=== PATIENT | male | born 1940 | race Caucasian/White ===

== ENCOUNTER 2021-07-16 15:15 | Emergency (ER) | payer OTHER ==
[2021-07-16 15:31] VITALS: BP 105/58; PULSE 83; TEMP 97.9; BMI 32.8
== END 2021-07-16 17:06 | disposition home or self-care (01) ==
LOC: JERFT 15:15
DX: R68.89 Other general symptoms and signs (principal); W01.0XXA Fall on same level from slipping, tripping and stumbling without subsequent striking against object, initial encounter
CPT/HCPCS: 70450-TC; 99284-25

== ENCOUNTER 2021-11-01 15:00 | Observation (INO) | payer OTHER ==
[2021-11-01] MEDS ORDERED: SODIUM CHLORIDE 0.9% 1000 ML INFUS.BAG IV ONE (15:20)
[2021-11-01 16:47] LABS: HEMATOCRIT 43.1 % (35.4-49); HEMOGLOBIN 15.1 G/dL (11.7-16.9); MCH 28.6 pg (25.7-33.7); MCHC 35.1 g/dl (32.0-35.9); MEAN CELL VOLUME 81.7 fl (80-96); RBC 5.28 10^6/uL (4.00-5.60); WHITE BLOOD COUNT 10.9 10^3/uL (4.0-10.8)
[2021-11-01 16:48] LABS: MEAN PLT VOLUME 8.7 fl (7.5-11.1); PLATELET COUNT 202.4 10^3/uL (134-434); RDW 15.4 % (11.9-15.9)
[2021-11-01 17:02] LABS: BILIRUBIN,TOTAL 0.6 mg/dl (0.2-1); CALCIUM 9.5 mg/dl (8.5-10); CREATININE 0.9 mg/dl (0.55-1.3); TOT PROT 6.7 g/dl (6.4-8.2)
[2021-11-01 18:24] LABS: EPITHELIAL CELLS FEW /hpf
[2021-11-01] MEDS ORDERED: ASPIRIN 81 MG CHEWABLE TABLETS PO ONE (18:24)
[2021-11-01 18:25] LABS: URINE MUCUS 1+
[2021-11-01] MEDS ORDERED: ASPIRIN 81 MG CHEWABLE TABLETS ONE (18:45)
[2021-11-01 19:04] LABS: PLATELET ESTIMATE ADEQUATE
[2021-11-02 08:26] VITALS: BMI 25.7
[2021-11-02] MEDS: ENTACAPONE 200 MG TABLET PO SCH ×2 (10:45→21:32)
[2021-11-02] MEDS: INSULIN SLIDING SCALE (NOVOLOG) 1 VIAL SQ SCH ×3 (11:09→21:31)
[2021-11-02] MEDS ORDERED: POLYETHYLENE GLYCOL (HEALTHYLAX) 3350 17 GM PACKET PO ONE (12:38)
[2021-11-02] MEDS ORDERED: SENNOSIDES 8.6MG TABLET (FP) PO PRN (12:38)
[2021-11-02 20:20] LABS: EPITHELIAL CELLS RARE /hpf
[2021-11-02] MEDS: POLYETHYLENE GLYCOL (HEALTHYLAX) 3350 17 GM PACKET PO SCH (21:32)
[2021-11-02] MEDS: GABAPENTIN 100 MG CAPSULE PO SCH (22:14)
[2021-11-03] MEDS: INSULIN SLIDING SCALE (NOVOLOG) 1 VIAL SQ SCH ×4 (08:13→22:21)
[2021-11-03 08:59] LABS: INR 1.03 (0.83-1.09); PROTHROMBIN TIME (PATIENT) 11.9 SEC (9.7-13.0)
[2021-11-03 09:06] LABS: ALBUMIN 3.8 g/dl (3.4-5.0); BILIRUBIN,TOTAL 1.1 mg/dl (0.2-1); CREATININE 0.8 mg/dl (0.55-1.3); MAGNESIUM 1.8 mg/dL (1.8-2.4); TOT PROT 6.4 g/dl (6.4-8.2)
[2021-11-03] MEDS: ENTACAPONE 200 MG TABLET PO SCH ×2 (09:14→22:21)
[2021-11-03] MEDS: POLYETHYLENE GLYCOL (HEALTHYLAX) 3350 17 GM PACKET PO SCH ×2 (09:14→22:21)
[2021-11-03 09:25] LABS: HEMATOCRIT 45.7 % (35.4-49); HEMOGLOBIN 15.8 G/dL (11.7-16.9); MCH 28.1 pg (25.7-33.7); MCHC 34.6 g/dl (32.0-35.9); MEAN CELL VOLUME 81.4 fl (80-96); PLATELET COUNT 185.5 10^3/uL (134-434); RBC 5.61 10^6/uL (4.00-5.60); RDW 15.4 % (11.9-15.9); WHITE BLOOD COUNT 9.8 10^3/uL (4.0-10.8)
[2021-11-03 09:27] LABS: LYMPH % 23.4 % (8-40); NEUT % 60.2 % (42.8-82.8)
[2021-11-03 09:28] LABS: BASO % 0.4 % (0-2.0); EOS % 8.9 % (0-4.5)
[2021-11-03] MEDS ORDERED: POTASSIUM CHLORIDE TABS 20 MEQ TABLET.ER (FP) PO ONE (09:32)
[2021-11-03] MEDS ORDERED: LEVOTHYROXINE NA 50 MCG TABLET (FP) PO ONE (09:34)
[2021-11-03] MEDS ORDERED: MAGNESIUM OXIDE 400 MG TABLET (FP) PO ONE (10:04)
[2021-11-03] MEDS: GABAPENTIN 100 MG CAPSULE PO SCH (22:21)
[2021-11-03 23:43] VITALS: TEMP 97.6
[2021-11-04] MEDS: INSULIN SLIDING SCALE (NOVOLOG) 1 VIAL SQ SCH ×3 (06:36→16:29)
[2021-11-04] MEDS ORDERED: LEVOTHYROXINE NA 50 MCG TABLET (FP) PO SCH (07:00)
[2021-11-04 08:05] LABS: ALBUMIN 3.5 g/dl (3.4-5.0); BILIRUBIN,TOTAL 0.9 mg/dl (0.2-1); CALCIUM 8.9 mg/dl (8.5-10); CREATININE 0.9 mg/dl (0.55-1.3); MAGNESIUM 1.9 mg/dL (1.8-2.4); TOT PROT 6.1 g/dl (6.4-8.2)
[2021-11-04 08:30] LABS: HEMATOCRIT 44.8 % (35.4-49); HEMOGLOBIN 15.2 G/dL (11.7-16.9); MCH 27.3 pg (25.7-33.7); MCHC 33.8 g/dl (32.0-35.9); MEAN CELL VOLUME 80.8 fl (80-96); MEAN PLT VOLUME 8.6 fl (7.5-11.1); PLATELET COUNT 196.8 10^3/uL (134-434); RBC 5.55 10^6/uL (4.00-5.60); RDW 15.3 % (11.9-15.9); WHITE BLOOD COUNT 10.6 10^3/uL (4.0-10.8)
[2021-11-04] MEDS: ENTACAPONE 200 MG TABLET PO SCH (09:33)
[2021-11-04] MEDS: POLYETHYLENE GLYCOL (HEALTHYLAX) 3350 17 GM PACKET PO SCH (09:33)
[2021-11-04] MEDS ORDERED: INSULIN (LEVEMIR) 100 UNITS/ML UNITS SQ SCH (10:00)
[2021-11-04 11:27] VITALS: BP 117/66; PULSE 72
[2021-11-04 18:14] LABS: ANISOCYTOSIS 1+
[2021-11-04 18:15] LABS: PLATELET ESTIMATE ADEQUATE
== END 2021-11-04 17:03 | disposition home or self-care (01) ==
LOC: FER 15:00 → FM/S 15:17
PROVIDERS: ADMIT Internal Medicine; ATTEND Nurse Practitioner Acute Care
PROC: 3E013VG Introduction of Insulin into Subcutaneous Tissue, Percutaneous Approach (ICD-10-PCS; principal; 2021-11-01)
PROC: 3E0337Z Introduction of Electrolytic and Water Balance Substance into Peripheral Vein, Percutaneous Approach (ICD-10-PCS; 2021-11-01)
DX: I25.10 Atherosclerotic heart disease of native coronary artery without angina pectoris (principal); G20 Parkinson's disease; R41.82 Altered mental status, unspecified; R29.6 Repeated falls; E78.5 Hyperlipidemia, unspecified; E11.9 Type 2 diabetes mellitus without complications; W18.39XA Other fall on same level, initial encounter; Y93.89 Activity, other specified; Y92.89 Other specified places as the place of occurrence of the external cause
CPT/HCPCS: 36415; 70450-TC; 71045-TC-FY; 72125-TC; 72170-TC-FY; 80053; 81003; 81015; 82962; 83735; 84436; 84443; 84480; 84484; 85025; 85027; 85610; 87086; 93005; 93306-TC; 96372; 97116-GP; 97162-GP; 99285-25; C9803-CS; G0378; U0003; U0005

== ENCOUNTER 2023-04-19 22:37 | Emergency (ER) | payer OTHER ==
[2023-04-19 22:58] VITALS: BP 135/75; PULSE 85; RESP 17; TEMP 98.1; BMI 29.5
[2023-04-19] MEDS ORDERED: LIDOCAINE 2%/EPINEPHRINE 1:100000 (50 ML MD VIAL) INF ONE (23:29)
[2023-04-19] MEDS ORDERED: LIDO 2%/EPI 1:200000 PRESRVFRE (20 ML SDVIAL) ONE (23:42)
[2023-04-19] MEDS ORDERED: IBUPROFEN 600 MG TABLET (FP) PO ONE ×2 (23:43→23:54)
[2023-04-19] MEDS ORDERED: DIPHTH,PERTUSS(ACELL),TET 0.5 ML DISP.SYRIN IM ONE ×2 (23:51→23:55)
== END 2023-04-20 00:04 | disposition home or self-care (01) ==
LOC: FER 22:37
PROC: 0HQ0XZZ Repair Scalp Skin, External Approach (ICD-10-PCS; principal; 2023-04-19)
PROC: 3E0234Z Introduction of Serum, Toxoid and Vaccine into Muscle, Percutaneous Approach (ICD-10-PCS; 2023-04-19)
DX: S01.01XA Laceration without foreign body of scalp, initial encounter (principal); S00.03XA Contusion of scalp, initial encounter; W01.0XXA Fall on same level from slipping, tripping and stumbling without subsequent striking against object, initial encounter
CPT/HCPCS: 12002-25; 70450-TC; 72125-TC; 90471; 90715; 99284-25

== ENCOUNTER 2023-04-23 13:15 | Inpatient (IN) | payer OTHER ==
[2023-04-23] MEDS ORDERED: ACETAMINOPHEN 1000 MG/100 ML BAG IVPB ONE (14:02)
[2023-04-23] MEDS ORDERED: SODIUM CHLORIDE 0.9% 1000 ML INFUS.BAG IV ONE (14:02)
[2023-04-23] MEDS ORDERED: ACETAMINOPHEN INJECTION 100 ML IVPB ONE (14:20)
[2023-04-23 14:43] LABS: HEMATOCRIT 34.3 % (35.4-49); HEMOGLOBIN 11.1 G/dL (11.7-16.9); MCH 25.1 pg (25.7-33.7); MCHC 32.4 g/dl (32.0-35.9); MEAN CELL VOLUME 77.3 fl (80-96); MEAN PLT VOLUME 8.7 fl (7.5-11.1); PLATELET COUNT 211.2 10^3/uL (134-434); RBC 4.44 10^6/uL (4.00-5.60); RDW 17.1 % (11.9-15.9); WHITE BLOOD COUNT 9.5 10^3/uL (4.0-10.8)
[2023-04-23 14:47] LABS: ALBUMIN 3.7 g/dl (3.4-5.0); BILIRUBIN,TOTAL 0.5 mg/dl (0.2-1); BLOOD UREA NITROGEN 33.8 mg/dl (7-18); CALCIUM 8.5 mg/dl (8.5-10.1); POTASSIUM 4.2 mmol/L (3.5-5.1); SGOT/AST 23.5 U/L (15-37); SGPT/ALT 5.7 U/L (7-52); TOT PROT 6.1 g/dl (6.4-8.2)
[2023-04-23] MEDS ORDERED: AZITHROMYCIN IVPB 500 MG in DEXTROSE 5%-WATER - 250 ML IVPB ONE (15:23)
[2023-04-23] MEDS ORDERED: CEFTRIAXONE 1 GM in DEXTROSE 5%-WATER - 100 ML IVPB ONE (15:23)
[2023-04-23] MEDS ORDERED: SODIUM CHLORIDE 0.45% 1,000 ML IV SCH (15:30)
[2023-04-23] MEDS ORDERED: cefTRIAXone SODIUM 1 GM VIAL ONE (15:38)
[2023-04-23] MEDS ORDERED: AZITHROMYCIN 500 MG VIAL IVPB ONE (15:38)
[2023-04-23] MEDS ORDERED: INSULIN (NOVOLOG) ASPART 100 UNITS/ML 10ML VIAL ONE (16:49)
[2023-04-23] MEDS: INSULIN SLIDING SCALE (NOVOLOG) 1 VIAL SQ SCH ×2 (16:50→22:16)
[2023-04-23] MEDS: ACETAMINOPHEN 325 MG TABLET (FP) PO PRN ×2 (18:50→23:35)
[2023-04-23] MEDS: HEPARIN NA (PORCINE) 5,000 UNITS/ML 1ML VIAL SQ SCH (22:16)
[2023-04-24] MEDS: HEPARIN NA (PORCINE) 5,000 UNITS/ML 1ML VIAL SQ SCH ×3 (05:37→21:39)
[2023-04-24] MEDS: ALBUTEROL SO4 0.083% IH SOL 2.5 MG/3 ML VIAL.NEB. NEB PRN ×2 (05:37→10:40)
[2023-04-24] MEDS: ACETAMINOPHEN 325 MG TABLET (FP) PO PRN (06:33)
[2023-04-24] MEDS: LEVOTHYROXINE NA 50 MCG TABLET (FP) PO SCH (06:39)
[2023-04-24] MEDS: INSULIN SLIDING SCALE (NOVOLOG) 1 VIAL SQ SCH ×4 (06:39→21:39)
[2023-04-24 08:49] LABS: BLOOD UREA NITROGEN 39.3 mg/dl (7-18); CALCIUM 8.1 mg/dl (8.5-10.1); CREATININE 1.3 mg/dl (0.6-1.3); POTASSIUM 4.1 mmol/L (3.5-5.1)
[2023-04-24] MEDS: [UNRECOGNIZED DRUG - OTHER] PO SCH ×5 (10:00→14:02)
[2023-04-24] MEDS: LEVODOPA PO SCH ×5 (10:00→14:02)
[2023-04-24] MEDS: CARBIDOPA PO SCH ×5 (10:00→14:02)
[2023-04-24] MEDS: ENTACAPONE PO SCH ×5 (10:00→14:02)
[2023-04-24 10:12] LABS: BASO % 0.1 % (0-2.0); HEMATOCRIT 33.5 % (35.4-49); LYMPH % 5.1 % (8-40); MCHC 32.7 g/dl (32.0-35.9); MEAN CELL VOLUME 76.3 fl (80-96); MEAN PLT VOLUME 8.5 fl (7.5-11.1); MONO % 4.5 % (3.8-10.2); NEUT % 90.3 % (42.8-82.8); PLATELET COUNT 188 10^3/uL (134-434); RBC 4.39 M/mm3 (4.00-5.60); RDW 15.4 % (11.9-15.9); WHITE BLOOD COUNT 15.5 K/mm3 (4.0-10.0)
[2023-04-24] MEDS: AZITHROMYCIN IVPB 500 MG/250 ML BAG IVPB SCH (10:57)
[2023-04-24] MEDS: CEFTRIAXONE 1 GM in DEXTROSE 5%-WATER - 50 ML IVPB SCH (10:58)
[2023-04-24] MEDS: LACTOBACILLUS ACIDOPHILUS 1 TABLET PO SCH (13:15)
[2023-04-24] MEDS: CARBIDOP 50MG/LEVODOPA 200MG/ENTACAPONE 200MG TABLET PO SCH ×3 (14:12→22:36)
[2023-04-24 15:28] VITALS: BMI 28.2
[2023-04-24 17:20] LABS: EPITHELIAL CELLS FEW /hpf
[2023-04-24] MEDS ORDERED: LACTATED RINGERS SOLUTION 1,000 ML/1,000 ML INFUS.BAG IV SCH (18:00)
[2023-04-24] MEDS: LIDOCAINE 5% TOPICAL PATCH TP SCH (18:13)
[2023-04-24] MEDS: LIDOCAINE PATCH REMOVAL MC SCH (18:25)
[2023-04-25] MEDS: INSULIN SLIDING SCALE (NOVOLOG) 1 VIAL SQ SCH ×4 (06:50→21:09)
[2023-04-25] MEDS: CARBIDOP 50MG/LEVODOPA 200MG/ENTACAPONE 200MG TABLET PO SCH ×5 (06:50→21:12)
[2023-04-25] MEDS: HEPARIN NA (PORCINE) 5,000 UNITS/ML 1ML VIAL SQ SCH ×3 (06:50→21:12)
[2023-04-25] MEDS: LEVOTHYROXINE NA 50 MCG TABLET (FP) PO SCH (06:51)
[2023-04-25] MEDS: LIDOCAINE PATCH REMOVAL MC SCH (06:52)
[2023-04-25 08:20] LABS: HEMATOCRIT 33.8 % (35.4-49); MCH 25.3 pg (25.7-33.7); MCHC 32.5 g/dl (32.0-35.9); MEAN CELL VOLUME 77.8 fl (80-96); MEAN PLT VOLUME 9.4 fl (7.5-11.1); PLATELET COUNT 178.9 10^3/uL (134-434); RBC 4.34 10^6/uL (4.00-5.60); RDW 17.5 % (11.9-15.9); WHITE BLOOD COUNT 11.6 10^3/uL (4.0-10.8)
[2023-04-25 08:53] LABS: BLOOD UREA NITROGEN 37.2 mg/dl (7-18); CALCIUM 8.3 mg/dl (8.5-10.1); PHOSPHOROUS 2.63 (2.5-4.9); POTASSIUM 3.9 mmol/L (3.5-5.1)
[2023-04-25] MEDS: CEFTRIAXONE 1 GM in DEXTROSE 5%-WATER - 50 ML IVPB SCH (09:36)
[2023-04-25] MEDS: LACTOBACILLUS ACIDOPHILUS 1 TABLET PO SCH (09:36)
[2023-04-25] MEDS: AZITHROMYCIN IVPB 500 MG/250 ML BAG IVPB SCH (09:38)
[2023-04-25] MEDS: ACETAMINOPHEN 325 MG TABLET (FP) PO PRN ×2 (11:11→17:46)
[2023-04-25] MEDS: LIDOCAINE 5% TOPICAL PATCH TP SCH (17:57)
[2023-04-26] MEDS: HEPARIN NA (PORCINE) 5,000 UNITS/ML 1ML VIAL SQ SCH ×3 (06:52→21:43)
[2023-04-26] MEDS: CARBIDOP 50MG/LEVODOPA 200MG/ENTACAPONE 200MG TABLET PO SCH ×5 (06:52→21:44)
[2023-04-26] MEDS: INSULIN SLIDING SCALE (NOVOLOG) 1 VIAL SQ SCH ×4 (06:52→21:43)
[2023-04-26] MEDS: LIDOCAINE PATCH REMOVAL MC SCH (06:52)
[2023-04-26] MEDS: ACETAMINOPHEN 325 MG TABLET (FP) PO PRN ×3 (06:53→17:21)
[2023-04-26] MEDS: LEVOTHYROXINE NA 50 MCG TABLET (FP) PO SCH (06:53)
[2023-04-26] MEDS: LACTOBACILLUS ACIDOPHILUS 1 TABLET PO SCH (09:19)
[2023-04-26] MEDS: CEFTRIAXONE 1 GM in DEXTROSE 5%-WATER - 50 ML IVPB SCH (09:19)
[2023-04-26] MEDS: AZITHROMYCIN IVPB 500 MG/250 ML BAG IVPB SCH (09:19)
[2023-04-26] MEDS: ALBUTEROL SO4 0.083% IH SOL 2.5 MG/3 ML VIAL.NEB. NEB PRN (10:06)
[2023-04-26] MEDS: LIDOCAINE 5% TOPICAL PATCH TP SCH (18:15)
[2023-04-27] MEDS: LIDOCAINE PATCH REMOVAL MC SCH (06:34)
[2023-04-27] MEDS: INSULIN SLIDING SCALE (NOVOLOG) 1 VIAL SQ SCH ×4 (06:35→21:37)
[2023-04-27] MEDS: HEPARIN NA (PORCINE) 5,000 UNITS/ML 1ML VIAL SQ SCH ×3 (06:35→21:36)
[2023-04-27] MEDS: LEVOTHYROXINE NA 50 MCG TABLET (FP) PO SCH (06:35)
[2023-04-27] MEDS: ACETAMINOPHEN 325 MG TABLET (FP) PO PRN ×3 (06:36→21:36)
[2023-04-27] MEDS: CARBIDOP 50MG/LEVODOPA 200MG/ENTACAPONE 200MG TABLET PO SCH ×5 (06:36→21:36)
[2023-04-27 08:28] LABS: HEMATOCRIT 32.8 % (35.4-49); HEMOGLOBIN 10.9 G/dL (11.7-16.9); MCH 25.6 pg (25.7-33.7); MCHC 33.1 g/dl (32.0-35.9); MEAN CELL VOLUME 77.2 fl (80-96); MEAN PLT VOLUME 8.7 fl (7.5-11.1); PLATELET COUNT 227.4 10^3/uL (134-434); RBC 4.25 10^6/uL (4.00-5.60); RDW 16.9 % (11.9-15.9); WHITE BLOOD COUNT 7.8 10^3/uL (4.0-10.8)
[2023-04-27 09:01] LABS: BLOOD UREA NITROGEN 31.9 mg/dl (7-18); CALCIUM 8.4 mg/dl (8.5-10.1); CREATININE 0.9 mg/dl (0.6-1.3); POTASSIUM 4.2 mmol/L (3.5-5.1)
[2023-04-27] MEDS: LACTOBACILLUS ACIDOPHILUS 1 TABLET PO SCH (10:50)
[2023-04-27] MEDS: CEFTRIAXONE 1 GM in DEXTROSE 5%-WATER - 50 ML IVPB SCH (10:52)
[2023-04-27] MEDS: AZITHROMYCIN IVPB 500 MG/250 ML BAG IVPB SCH (10:53)
[2023-04-27] MEDS: LIDOCAINE 5% TOPICAL PATCH TP SCH (18:49)
[2023-04-27 19:22] VITALS: RESP 17
[2023-04-28] MEDS: LIDOCAINE PATCH REMOVAL MC SCH (05:50)
[2023-04-28] MEDS: HEPARIN NA (PORCINE) 5,000 UNITS/ML 1ML VIAL SQ SCH ×2 (05:50→13:58)
[2023-04-28] MEDS: CARBIDOP 50MG/LEVODOPA 200MG/ENTACAPONE 200MG TABLET PO SCH ×4 (05:50→17:08)
[2023-04-28] MEDS: ACETAMINOPHEN 325 MG TABLET (FP) PO PRN ×2 (06:21→17:08)
[2023-04-28] MEDS: LEVOTHYROXINE NA 50 MCG TABLET (FP) PO SCH (06:23)
[2023-04-28] MEDS: INSULIN SLIDING SCALE (NOVOLOG) 1 VIAL SQ SCH ×3 (06:23→17:09)
[2023-04-28] MEDS: LACTOBACILLUS ACIDOPHILUS 1 TABLET PO SCH (10:00)
[2023-04-28] MEDS: AZITHROMYCIN IVPB 500 MG/250 ML BAG IVPB SCH (10:00)
[2023-04-28] MEDS: CEFTRIAXONE 1 GM in DEXTROSE 5%-WATER - 50 ML IVPB SCH (10:01)
[2023-04-28 11:02] VITALS: BP 126/64; PULSE 72; TEMP 98
[2023-04-28] MEDS: LIDOCAINE 5% TOPICAL PATCH TP SCH (17:09)
== END 2023-04-28 18:23 | disposition home or self-care (01) | DRG 194 ==
LOC: FER 13:15 → FM/S 15:27
PROVIDERS: ADMIT Internal Medicine
DX: J18.9 Pneumonia, unspecified organism (principal); N17.9 Acute kidney failure, unspecified; E78.00 Pure hypercholesterolemia, unspecified; G20 Parkinson's disease; I25.10 Atherosclerotic heart disease of native coronary artery without angina pectoris; I48.91 Unspecified atrial fibrillation; E03.9 Hypothyroidism, unspecified; R29.6 Repeated falls; I12.9 Hypertensive chronic kidney disease with stage 1 through stage 4 chronic kidney disease, or unspecified chronic kidney disease; E11.22 Type 2 diabetes mellitus with diabetic chronic kidney disease; N18.9 Chronic kidney disease, unspecified; W18.39XA Other fall on same level, initial encounter; Y92.098 Other place in other non-institutional residence as the place of occurrence of the external cause
CPT/HCPCS: 0241U-QW; 36415; 70450-TC; 71045-TC-FY; 72125-TC; 80048; 80053; 81003; 81015; 82962; 83735; 84100; 85025; 85027; 87040; 87086; 87186; 93005; 94640; 97116-GP; 97162-GP; 99285-25; J1644

== ENCOUNTER 2024-02-05 00:09 | Inpatient (IN) | payer OTHER ==
[2024-02-05 00:58] LABS: BASO % 0.2 % (0-2.0); EOS % 0.2 % (0-4.5); HEMATOCRIT 28.8 % (35.4-49); HEMOGLOBIN 9.3 GM/dL (11.7-16.9); LYMPH % 4.7 % (8-40); MCH 23.2 pg (25.7-33.7); MCHC 32.2 g/dl (32.0-35.9); MEAN CELL VOLUME 72.1 fl (80-96); MEAN PLT VOLUME 7.3 fl (7.5-11.1); MONO % 6.5 % (3.8-10.2); NEUT % 88.4 % (42.8-82.8); PLATELET COUNT 191 10^3/uL (134-434); RDW 16.6 % (11.9-15.9); VENOUS O2 SATURATION 35.2 % (70-80); VENOUS PH 7.344 (7.310-7.410)
[2024-02-05 01:15] LABS: POTASSIUM 4.2 mmol/L (3.5-5.1)
[2024-02-05 01:17] LABS: CALCIUM 8.6 mg/dL (8.5-10.1)
[2024-02-05 01:18] LABS: ALBUMIN 3.2 g/dl (3.4-5.0); BLOOD UREA NITROGEN 38.3 mg/dL (7-18)
[2024-02-05 01:21] LABS: CREATININE 1.5 mg/dL (0.55-1.3)
[2024-02-05] MEDS: SODIUM CHLORIDE 0.9% 500 ML INFUS.BAG IV ONE ×3 (01:21→18:35)
[2024-02-05] MEDS: VANCOMYCIN HCL 1,500 MG in DEXTROSE 5%-WATER - 500 ML IVPB ONE (01:21)
[2024-02-05] MEDS: PIPERACILLIN/TAZOB 3.375 GM 3.375 GM in DEXTROSE 5%-WATER - 50 ML IVPB ONE (01:21)
[2024-02-05 01:23] LABS: BILIRUBIN,TOTAL 0.6 mg/dL (0.2-1); TOT PROT 6.3 g/dl (6.4-8.2)
[2024-02-05] MEDS ORDERED: VANCOMYCIN 500 MG VIAL (RESTRICTED TO ID ONLY) ONE (01:24)
[2024-02-05] MEDS ORDERED: VANCOMYCIN 1 GRAM (PRE-DOCKED) 1,000 MG/250 ML BAG IVPB ONE (01:24)
[2024-02-05] MEDS ORDERED: PIPERACILLIN/TAZOB 3.375 GM 3.375 GM/50 ML BAG IVPB ONE (01:25)
[2024-02-05 01:27] LABS: LACTIC ACID 4.3 mmol/L (0.4-2.0)
[2024-02-05] MEDS: SODIUM CHLORIDE 0.9% 1000 ML INFUS.BAG IV STA (02:09)
[2024-02-05 02:34] LABS: INR 1.06 (0.83-1.09)
[2024-02-05 02:36] LABS: ACTIVATED PTT 29.4 SECONDS (25.2-36.5)
[2024-02-05] MEDS ORDERED: ACETAMINOPHEN INJECTION 100 ML IVPB ONE (06:02)
[2024-02-05] MEDS: ACETAMINOPHEN 1000 MG/100 ML BAG IVPB ONE (06:05)
[2024-02-05] MEDS ORDERED: PIPERACILLIN/TAZOB 4.5 GM 4.5 GM/100 ML BAG IVPB ONE ×2 (08:37→14:16)
[2024-02-05] MEDS: PIPERACILLIN/TAZOB 4.5 GM 4.5 GM in DEXTROSE 5%-WATER 100 ML IVPB SCH ×2 (08:45→22:11)
[2024-02-05] MEDS: CARBIDOP 50MG/LEVODOPA 200MG/ENTACAPONE 200MG TABLET PO SCH ×2 (10:04→22:11)
[2024-02-05] MEDS: metFORMIN HCL 500 MG TABLET (FP) PO SCH (10:04)
[2024-02-05] MEDS: LEVOTHYROXINE NA 50 MCG TABLET (FP) PO SCH (10:04)
[2024-02-05] MEDS: INSULIN ASPART SLIDING SCALE (NOVOLOG) 1 VIAL SQ SCH ×2 (11:22→22:56)
[2024-02-05] MEDS ORDERED: ACETAMINOPHEN 1000 MG/100 ML BAG IVPB PRN ×2 (12:00→18:16)
[2024-02-05] MEDS: SODIUM CHLORIDE 0.45% 1,000 ML IV SCH (14:40)
[2024-02-05] MEDS: SODIUM CHLORIDE 1,000 ML IV SCH ×2 (14:43→17:34)
[2024-02-05] MEDS ORDERED: SODIUM CHLORIDE 0.9% 500 ML INFUS.BAG IV ONE (15:03)
[2024-02-05 15:31] LABS: BASO % 0.3 % (0-2.0); EOS % 0.5 % (0-4.5); HEMATOCRIT 29.3 % (35.4-49); HEMOGLOBIN 9.4 GM/dL (11.7-16.9); LYMPH % 11.6 % (8-40); MCH 23.3 pg (25.7-33.7); MCHC 32.2 g/dl (32.0-35.9); MEAN CELL VOLUME 72.3 fl (80-96); MEAN PLT VOLUME 7.9 fl (7.5-11.1); MONO % 8.1 % (3.8-10.2); NEUT % 79.5 % (42.8-82.8); PLATELET COUNT 158 10^3/uL (134-434); RBC 4.05 M/mm3 (4.00-5.60); RDW 16.6 % (11.9-15.9); WHITE BLOOD COUNT 12.7 K/mm3 (4.0-10.0)
[2024-02-05 15:59] LABS: POTASSIUM 4.2 mmol/L (3.5-5.1)
[2024-02-05 16:02] LABS: CALCIUM 7.7 mg/dL (8.5-10.1)
[2024-02-05 16:03] LABS: ALBUMIN 2.8 g/dl (3.4-5.0); BLOOD UREA NITROGEN 28.5 mg/dL (7-18)
[2024-02-05 16:06] LABS: CREATININE 1.1 mg/dL (0.55-1.3)
[2024-02-05 16:08] LABS: BILIRUBIN,TOTAL 0.7 mg/dL (0.2-1); TOT PROT 5.8 g/dl (6.4-8.2)
[2024-02-05] MEDS ORDERED: INSULIN ASPART SLIDING SCALE (NOVOLOG) 1 VIAL SQ ONE (19:46)
[2024-02-05 20:00] LABS: PH,URINE 5.5 (5.0-8.0); URINE BILIRUBIN 2+ (NEGATIVE); URINE GLUCOSE (UA) Trace (NEGATIVE); URINE KETONE 1+ (NEGATIVE); URINE LEUK ESTERASE 3+ (NEGATIVE); URINE NITRITE Positive (NEGATIVE); URINE PROTEIN 3+ (NEGATIVE)
[2024-02-05] MEDS ORDERED: PIPERACILLIN/TAZOB 4.5 GM 4.5 GM in DEXTROSE 5%-WATER 100 ML IVPB SCH (21:00)
[2024-02-05 21:19] LABS: RETICULOCYTES 0.62 % (0.5-1.5)
[2024-02-05] MEDS ORDERED: HEPARIN NA (PORCINE) 5,000 UNITS/ML 1ML VIAL SQ SCH (22:00)
[2024-02-05] MEDS: CHLORHEXIDINE GLUCONATE 4% CLEANSER FOR DECOLONIZATION TP SCH (22:11)
[2024-02-05] MEDS: MUPIROCIN 2% TOPICAL OINTMENT FOR DECOLONIZATION NS SCH (22:11)
[2024-02-05 22:25] LABS: URINE APPEARANCE TURBID; URINE COLOR AMBER
[2024-02-05] MEDS: POLYETHYLENE GLYCOL (HEALTHYLAX) 3350 17 GM PACKET PO SCH (23:27)
[2024-02-06] MEDS: LEVOTHYROXINE NA 50 MCG TABLET (FP) PO SCH (06:57)
[2024-02-06 07:15] LABS: ALBUMIN 2.8 g/dl (3.4-5.0); BLOOD UREA NITROGEN 24.8 mg/dL (7-18)
[2024-02-06 07:16] LABS: MAGNESIUM 1.8 mg/dL (1.8-2.4)
[2024-02-06 07:18] LABS: CREATININE 1.1 mg/dL (0.55-1.3); PHOSPHOROUS 2.5 mg/dL (2.5-4.9)
[2024-02-06 07:20] LABS: BILIRUBIN,TOTAL 0.5 mg/dL (0.2-1); TOT PROT 5.8 g/dl (6.4-8.2)
[2024-02-06 08:03] LABS: BASO % 0.3 % (0-2.0); HEMATOCRIT 27.4 % (35.4-49); HEMOGLOBIN 9.1 GM/dL (11.7-16.9); LYMPH % 8.9 % (8-40); MEAN CELL VOLUME 72.5 fl (80-96); MEAN PLT VOLUME 8.3 fl (7.5-11.1); MONO % 7.2 % (3.8-10.2); NEUT % 82.6 % (42.8-82.8); PLATELET COUNT 157 10^3/uL (134-434); RBC 3.78 M/mm3 (4.00-5.60); RDW 16.6 % (11.9-15.9); WHITE BLOOD COUNT 9.5 K/mm3 (4.0-10.0)
[2024-02-06] MEDS ORDERED: PIPERACILLIN/TAZOB 4.5 GM 4.5 GM in DEXTROSE 5%-WATER 100 ML IVPB SCH (09:00)
[2024-02-06 13:09] VITALS: BMI 30.4
[2024-02-07 09:01] LABS: HEMATOCRIT 29.5 % (35.4-49); HEMOGLOBIN 9.7 GM/dL (11.7-16.9); MCH 23.8 pg (25.7-33.7); MEAN CELL VOLUME 72.1 fl (80-96); MEAN PLT VOLUME 8.6 fl (7.5-11.1); PLATELET COUNT 180 10^3/uL (134-434); RBC 4.09 M/mm3 (4.00-5.60); RDW 16.7 % (11.9-15.9); WHITE BLOOD COUNT 9.7 K/mm3 (4.0-10.0)
[2024-02-07 09:22] LABS: BLOOD UREA NITROGEN 23.3 mg/dL (7-18); CALCIUM 8.4 mg/dL (8.5-10.1)
[2024-02-07 09:23] LABS: MAGNESIUM 1.9 mg/dL (1.8-2.4)
[2024-02-07 09:25] LABS: PHOSPHOROUS 2.4 mg/dL (2.5-4.9)
[2024-02-07 09:26] LABS: CREATININE 0.9 mg/dL (0.55-1.3)
[2024-02-07] MEDS: SODIUM CHLORIDE 1,000 ML IV SCH (17:53)
[2024-02-07] MEDS: INSULIN ASPART SLIDING SCALE (NOVOLOG) 1 VIAL SQ SCH (17:57)
[2024-02-07] MEDS: CARBIDOP 50MG/LEVODOPA 200MG/ENTACAPONE 200MG TABLET PO SCH (17:57)
[2024-02-07] MEDS: POLYETHYLENE GLYCOL (HEALTHYLAX) 3350 17 GM PACKET PO SCH (21:38)
[2024-02-07] MEDS: PIPERACILLIN/TAZOB 4.5 GM 4.5 GM in DEXTROSE 5%-WATER 100 ML IVPB SCH (21:38)
[2024-02-08] MEDS: LEVOTHYROXINE NA 50 MCG TABLET (FP) PO SCH (06:36)
[2024-02-08 09:38] LABS: BASO % 0.3 % (0-2.0); EOS % 3.9 % (0-4.5); HEMATOCRIT 27.7 % (35.4-49); HEMOGLOBIN 9.1 GM/dL (11.7-16.9); MCH 23.3 pg (25.7-33.7); MCHC 32.8 g/dl (32.0-35.9); MEAN CELL VOLUME 71.1 fl (80-96); MEAN PLT VOLUME 8.3 fl (7.5-11.1); MONO % 8.8 % (3.8-10.2); PLATELET COUNT 197 10^3/uL (134-434); RBC 3.89 M/mm3 (4.00-5.60); RDW 16.7 % (11.9-15.9); WHITE BLOOD COUNT 7.5 K/mm3 (4.0-10.0)
[2024-02-08 09:46] LABS: POTASSIUM 3.8 mmol/L (3.5-5.1)
[2024-02-08 09:55] LABS: BLOOD UREA NITROGEN 22.5 mg/dL (7-18); CALCIUM 8.3 mg/dL (8.5-10.1); MAGNESIUM 1.8 mg/dL (1.8-2.4)
[2024-02-08 09:56] LABS: ALBUMIN 2.7 g/dl (3.4-5.0)
[2024-02-08 09:58] LABS: PHOSPHOROUS 2.2 mg/dL (2.5-4.9)
[2024-02-08 09:59] LABS: BILIRUBIN,TOTAL 0.8 mg/dL (0.2-1); TOT PROT 5.6 g/dl (6.4-8.2)
[2024-02-08] MEDS ORDERED: INSULIN ASPART SLIDING SCALE (NOVOLOG) 1 VIAL SQ ONE (11:41)
[2024-02-08] MEDS: NAPH,MB-DB/K PH,MBDB POWDER PACKET PO ONE (14:56)
[2024-02-10 14:54] VITALS: RESP 18
[2024-02-11 07:36] LABS: BASO % 0.4 % (0-2.0); EOS % 8.6 % (0-4.5); HEMATOCRIT 30.9 % (35.4-49); HEMOGLOBIN 10.2 GM/dL (11.7-16.9); LYMPH % 17.6 % (8-40); MCH 23.8 pg (25.7-33.7); MCHC 33.1 g/dl (32.0-35.9); MEAN CELL VOLUME 71.8 fl (80-96); MEAN PLT VOLUME 7.8 fl (7.5-11.1); MONO % 8.2 % (3.8-10.2); NEUT % 65.2 % (42.8-82.8); PLATELET COUNT 257 10^3/uL (134-434); WHITE BLOOD COUNT 7.5 K/mm3 (4.0-10.0)
[2024-02-11 07:45] LABS: POTASSIUM 3.4 mmol/L (3.5-5.1)
[2024-02-11 07:50] LABS: CALCIUM 8.3 mg/dL (8.5-10.1)
[2024-02-11 07:51] LABS: BLOOD UREA NITROGEN 13.2 mg/dL (7-18)
[2024-02-11 07:52] LABS: CREATININE 0.8 mg/dL (0.55-1.3)
[2024-02-11 07:54] LABS: BILIRUBIN,TOTAL 0.8 mg/dL (0.2-1); TOT PROT 6.3 g/dl (6.4-8.2)
[2024-02-11] MEDS ORDERED: PIPERACILLIN/TAZOBACTAM 4.5 GM VIAL IVPB ONE (09:50)
[2024-02-11 15:55] VITALS: BP 136/62; PULSE 88; TEMP 98.2
[2024-02-11] MEDS: POTASSIUM CHLORIDE ORAL LIQUID 20 MEQ/15 ML PO ONE (18:07)
== END 2024-02-11 18:36 | disposition home or self-care (01) | DRG 871 ==
LOC: JER 00:09 → JERBED 05:53 → JICU 16:41 → J8W 02-07 13:13
PROVIDERS: ADMIT Internal Medicine; ATTEND Internal Medicine
DX: A41.89 Other specified sepsis (principal); G93.41 Metabolic encephalopathy; R65.21 Severe sepsis with septic shock; J96.01 Acute respiratory failure with hypoxia; N17.9 Acute kidney failure, unspecified; N39.0 Urinary tract infection, site not specified; I69.351 Hemiplegia and hemiparesis following cerebral infarction affecting right dominant side; E87.20 Acidosis, unspecified; E03.9 Hypothyroidism, unspecified; E78.5 Hyperlipidemia, unspecified; G20.A1 Parkinson's disease without dyskinesia, without mention of fluctuations; E11.9 Type 2 diabetes mellitus without complications; I25.10 Atherosclerotic heart disease of native coronary artery without angina pectoris; D72.829 Elevated white blood cell count, unspecified; R29.6 Repeated falls; N40.0 Benign prostatic hyperplasia without lower urinary tract symptoms; R31.9 Hematuria, unspecified; I48.0 Paroxysmal atrial fibrillation; I95.9 Hypotension, unspecified
CPT/HCPCS: 0241U-QW; 36415; 71045-TC-FY; 73000-TC-RT-FY; 73060-TC-RT-FY; 73070-TC-RT-FY; 73130-TC-RT-FY; 74176-TC; 80048; 80053; 81003; 81015; 82570; 82728; 82803; 82962; 83540; 83550; 83605; 83735; 84100; 84153; 84300; 84439; 84443; 84484; 85025; 85027; 85045; 85610; 85730; 86850; 86900; 86901; 87040; 87086; 87186; 93005; 93010; 97116-GP; 97161-GP; 99285-25; J0131